=== PATIENT | female | born 1950 | race Asian ===

== ENCOUNTER 2022-07-29 19:08 | Emergency (ER) | payer OTHER ==
[~2022-07-29] VITALS: Ht 165.1 cm; Wt 99.8 kg
[2022-07-29 20:03] LABS: PLATELET COUNT 172 K/uL (152-353)
[2022-07-29 20:09] LABS: POTASSIUM 3.1 mmol/L (3.6-5.2)
[2022-07-30] MEDS ORDERED: TYLENOL325 MG PO (08:39)
[2022-07-30] MEDS ORDERED: CORRECTOL100 MG PO (08:41)
[2022-07-30] MEDS ORDERED: ELIQUIS5 MG PO (08:42)
[2022-07-30] MEDS ORDERED: FURO40TA93 PO (08:43)
[2022-07-30] MEDS ORDERED: KEPPRA1000 MG PO (08:44)
[2022-07-30] MEDS ORDERED: LEVO0.1T6 PO (08:45)
[2022-07-30] MEDS ORDERED: METO25TA4 PO (08:46)
[2022-07-30] MEDS ORDERED: REMERON SOLTAB15 MG PO (08:47)
[2022-07-30] MEDS ORDERED: PERCOCET1 TA3 PO (08:49)
[2022-07-30] MEDS ORDERED: PRAVASTATIN10 MG PO (08:50)
[2022-07-30] MEDS ORDERED: SERT50TA PO (08:51)
[2022-07-30] MEDS ORDERED: RISP0.25 PO (08:53)
== END 2022-07-29 20:25 | disposition still patient (30) ==
LOC: ED 19:08
PROVIDERS: Internal Medicine
DX: R45.851 Suicidal ideations (principal); Z11.52 Encounter for screening for COVID-19; Z04.6 Encounter for general psychiatric examination, requested by authority
CPT/HCPCS: 80053; 85027; 87635; 93005; 99283; U0003